=== PATIENT | female | born 1960 | race Caucasian/White ===

== ENCOUNTER 2017-01-13 12:29 | Outpatient (CLI) | payer OTHER, SELFPAY ==
[2017-01-13 13:06] LABS: #Basophils 0.1 thou/uL (0.0-0.2); #Eosinphils 0.1 thou/uL (0.0-0.7); #Lymphocytes 1.9 thou/uL (1.20-3.40); #Monocytes 0.6 thou/uL (0.11-0.59); #Neutrophils 3.4 thou/uL (1.40-6.50); %Basophils 1.6 % (0.0-1.0); %Eosinophils 1.3 % (0.0-10.0); %Monocytes 9.2 % (0.0-10.0); Hematocrit 40.7 % (36.0-47.0); Mean Platelet Volume 7.6 fL (7.4-10.4); Red Blood Cell (RBC) Count 4.38 mill/uL (4.20-5.40)
[2017-01-13 13:24] LABS: Bilirubin Negative (Negative); Blood, Urine Negative (Negative); Glucose, Urine (Dipstick) Negative (Negative); Ketone, Urine Negative (Negative); Nitrite Negative (Negative); Protein, Urine (Dipstick) Negative (Neg-Trace); Urobilinogen 0.2 mg/dL (0.2-1.0)
[2017-01-13 13:53] LABS: ALT (SGPT) 56 U/L (0-55); AST (SGOT) 33 U/L (5-34); Alkaline Phosphatase 82 U/L (40-150); Anion Gap 10 mmol/L (10-20); BUN (Urea Nitrogen) 14 mg/dL (9.8-20.1); Bilirubin, Total 0.4 mg/dL (0.2-1.2); Calc. Creatinine Clearance 0 mL/min (70-130); Calcium 9.5 mg/dL (7.8-10.44); Carbon Dioxide 30 mmol/L (22-29); Chloride 105 mmol/L (98-107); Estimated GFR-MDRD 75; Globulin 2.7 g/dL (2.4-3.5); LDL Cholesterol, Calculated 100 mg/dL
[2017-01-13 14:00] LABS: Bacteria/HPF Rare-Few HPF (None Seen); RBC/HPF 0-3 HPF (0-3); Squamous Epithelial 0-3 HPF (0-3)
== END 2017-01-13 12:30 ==
LOC: NAVSJIPCSP 12:29
PROVIDERS: ATTEND Internal Medicine
DX: K21.9 Gastro-esophageal reflux disease without esophagitis (principal); R53.83 Other fatigue
CPT/HCPCS: 36415; 80053; 80061; 81001; 84443; 85025

== ENCOUNTER 2017-01-23 09:46 | Emergency (ER) | payer OTHER ==
[2017-01-23] MEDS ORDERED: D5 1/2 NS w/20 mEq KCL 0 ML ONE (10:48)
[2017-01-23] MEDS ORDERED: Dextrose 5 %-0.45 % NaCl 1,000 ML ONE (10:50)
[2017-01-23 10:57] LABS: ALT (SGPT) 44 U/L (0-55); AST (SGOT) 25 U/L (5-34); Alkaline Phosphatase 75 U/L (40-150); Anion Gap 14 mmol/L (10-20); BUN (Urea Nitrogen) 23 mg/dL (9.8-20.1); Bilirubin, Total 0.7 mg/dL (0.2-1.2); Calc. Creatinine Clearance 0 mL/min (70-130); Carbon Dioxide 26 mmol/L (22-29); Chloride 106 mmol/L (98-107); Estimated GFR-MDRD 76; Globulin 2.9 g/dL (2.4-3.5); Lipase 9 U/L (8-78); Protein, Total 7.3 g/dL (6.0-8.3)
[2017-01-23] MEDS ORDERED: Ondansetron HCl/PF 4 MG/2 ML Vial ONE (11:01)
[2017-01-23 11:04] LABS: Hematocrit 43.2 % (36.0-47.0); Mean Platelet Volume 7.6 fL (7.4-10.4); Red Blood Cell (RBC) Count 4.74 mill/uL (4.20-5.40); White Blood Cell (WBC) Count 10.9 thou/uL (4.8-10.8)
[2017-01-23 11:05] LABS: Band 6 % (5-11); Neutrophil 83 % (42-75)
== END 2017-01-23 12:36 | disposition home or self-care (01) ==
LOC: NAV ERS 09:46
DX: K21.0 Gastro-esophageal reflux disease with esophagitis (principal); Z87.891 Personal history of nicotine dependence
CPT/HCPCS: 36415; 80053; 83690; 85025; 96361; 96374; J2405; J7042

== ENCOUNTER 2017-09-26 16:40 | Emergency (ER) | payer OTHER ==
[2017-09-26] MEDS ORDERED: Ibuprofen 200 MG TAB ONE (17:26)
--- NOTE | 2017-09-26 18:38 | RAD ---
LEFT ANKLE THREE VIEWS: 09/26/17 COMPARISON: None. HISTORY: Rolled ankle, pain. FINDINGS: The talar dome and ankle mortise are intact. There is no displaced fracture or evidence of dislocati on seen. IMPRESSION: No fracture or dislocation noted. POS: [facility]
== END 2017-09-26 17:39 | disposition home or self-care (01) ==
LOC: NAV ERS 16:40
DX: S93.432A Sprain of tibiofibular ligament of left ankle, initial encounter (principal); Z87.891 Personal history of nicotine dependence; X50.9XXA Other and unspecified overexertion or strenuous movements or postures, initial encounter; Y92.69 Other specified industrial and construction area as the place of occurrence of the external cause; Y99.0 Civilian activity done for income or pay